=== PATIENT | female | born 1990 ===

== ENCOUNTER 2019-07-28 05:15 | Day surgery (SDC) | payer OTHER | END 2019-07-28 16:25 | disposition home or self-care (01) | LOC: CIR.AMB 05:15 | DX: O34.31 Maternal care for cervical incompetence, first trimester (principal) ==

== ENCOUNTER 2019-11-18 09:30 | Outpatient (CLI) | payer OTHER | END 2019-11-18 10:23 | disposition home or self-care (01) | LOC: NST 09:30 | PROVIDERS: ATTEND Obstetrics & Gynecology | DX: Z34.83 Encounter for supervision of other normal pregnancy, third trimester (principal); N60.09 Solitary cyst of unspecified breast ==

== ENCOUNTER 2020-02-04 13:00 | Inpatient (IN) | payer OTHER ==
[~2020-02-04] VITALS: Ht 152.4 cm; Wt 95.3 kg
[2020-02-11] MEDS ORDERED: PRENATAL TABLE1 EAC3 PO (09:52)
[2020-02-11] MEDS ORDERED: IRON325 MG PO (09:54)
== END 2020-02-13 11:57 | disposition home or self-care (01) | DRG 807 ==
LOC: OB/GYN 02-10 15:30 → LDR 02-10 15:30 → OB/GYN 02-11 07:48 → LDR 02-11 08:43 → OB/GYN 02-11 13:10
PROVIDERS: ADMIT Obstetrics & Gynecology; ATTEND Obstetrics & Gynecology
PROC: 10E0XZZ Delivery of Products of Conception, External Approach (ICD-10-PCS; principal; 2020-02-11)
PROC: 0KQM0ZZ Repair Perineum Muscle, Open Approach (ICD-10-PCS; 2020-02-11)
PROC: 4A1HXFZ Monitoring of Products of Conception, Cardiac Rhythm, External Approach (ICD-10-PCS; 2020-02-11)
PROC: 3E033VJ Introduction of Other Hormone into Peripheral Vein, Percutaneous Approach (ICD-10-PCS; 2020-02-11)
PROC: 10907ZC Drainage of Amniotic Fluid, Therapeutic from Products of Conception, Via Natural or Artificial Opening (ICD-10-PCS; 2020-02-11)
DX: O70.1 Second degree perineal laceration during delivery (principal); Z37.0 Single live birth; Z3A.39 39 weeks gestation of pregnancy; Z20.828 Contact with and (suspected) exposure to other viral communicable diseases

== ENCOUNTER 2021-08-01 11:29 | Emergency (ER) | payer OTHER ==
[~2021-08-01] VITALS: Ht 152.4 cm; Wt 90.7 kg
[~2021-08-01 11:29] MED LIST: IRON325 MG PO; PRENATAL TABLE1 EAC3 PO
== END 2021-08-01 17:43 | disposition home or self-care (01) ==
LOC: ER 11:29
DX: K52.9 Noninfective gastroenteritis and colitis, unspecified (principal); E86.0 Dehydration; Z20.822 Contact with and (suspected) exposure to COVID-19